=== PATIENT | male | born 1960 | race Caucasian/White ===

== ENCOUNTER 2017-11-19 10:14 | Emergency (ER) | payer BC, OTHER ==
[2017-11-19 10:24] VITALS: BP 133/73; PULSE 62; TEMP 98.6; BMI 22.2
--- NOTE | 2017-11-19 11:03 | PDOC ---
History of Present Illness - General Chief Complaint: Pain Stated Complaint: TOOTHACHE, ABSCESS Time Seen by Provider: 11/19/17 10:53 History Source: Patient Exam Limitations: No Limitations - History of Present Illness Initial Comments: 11/19/17 10:59 c/o toothache to right side mouth started in the middle of the night. no trauma last dental visit 5 yrs ago. pt has known poor dentition. Severity: mild Past History - Past Medical History Allergies/Adverse Reactions: Allergies Allergy/AdvReac Type Severity Reaction Status Date / Time Penicillins Allergy Verified 11/19/17 10:21 Home Medications: Ambulatory Orders Clindamycin [Cleocin -] 300 mg PO Q6HPO #28 capsule 11/19/17 Ibuprofen 800 mg PO TID PRN #21 tablet 11/19/17 COPD: No - Suicide/Smoking/Psychosocial Hx Smoking History: Never smoked Have you smoked in the past 12 months: No Information on smoking cessation initiated: No Hx Alcohol Use: No Drug/Substance Use Hx: No Substance Use Type: None Review of Systems - Review of Systems Able to Perform ROS?: Yes Is the patient limited Frisian proficient: No Constitutional: No: Symptoms Reported HEENTM: Yes: Symptoms Reported Respiratory: No: Symptoms reported Cardiac (ROS): No: Symptoms Reported ABD/GI: No: Symptoms Reported *Physical Exam - Vital Signs Last Vital Signs Temp Pulse Resp BP Pulse Ox 98.6 F 62 18 133/73 99 11/19/17 10:21 11/19/17 10:21 11/19/17 10:21 11/19/17 10:21 11/19/17 10:21 - Physical Exam General Appearance: Yes: Nourished, Appropriately Dressed HEENT: positive: EOMI, MAU, Other (right lower teeth with multiple dental carries and tartar, broken teeth noted, no abscess or swelling) Neck: positive: Supple. negative: Lymphadenopathy (R), Lymphadenopathy (L) *DC/Admit/Observation/Transfer Diagnosis at time of Disposition: Toothache - Discharge Dispostion Disposition: HOME Condition at time of disposition: Good - Prescriptions Prescriptions: Clindamycin [Cleocin -] 300 mg PO Q6HPO #28 capsule Ibuprofen 800 mg PO TID PRN #21 tablet PRN Reason: Pain - Referrals Referrals: Jayson Prakash MD [Primary Care Provider] - - Patient Instructions Additional Instructions: take the antibiotics as prescribed and the ibuprofen 800mg for pain follow up as planned with your dentist - Post Discharge Activity
== END 2017-11-19 11:11 | disposition home or self-care (01) ==
LOC: JERFT 10:14
DX: K08.89 Other specified disorders of teeth and supporting structures (principal)
CPT/HCPCS: 99281-25